=== PATIENT | male | born 1970 | race African-American/Black ===

== ENCOUNTER 2016-07-02 04:26 | Emergency (ER) | payer MEDICAID ==
[2016-01-24 05:38] VITALS: BMI 22.3
[~2016-07-02 04:26] MED LIST: HYDROCODON-ACE1 EAC7 PO; LISINOPRIL2.5 MG PO; NORVASC2.5 MG PO; PROTONIX40 MG PO
[2016-07-02 05:23] LABS: CALC OSMOLALITY 287 mosm/kg (275-300); CALCIUM 8.3 mg/dL (8.5-10.1); CARBON DIOXIDE 24.1 mmol/L (21.0-32.0); CHLORIDE - SERUM 108 mmol/L (98-107); CREATININE - SERUM 0.7 mg/dL (0.6-1.3); GLUCOSE 98 mg/dL (74-106); POTASSIUM - SERUM 3.4 mmol/L (3.5-5.1); SODIUM 145 mmol/L (136-145); UREA NITROGEN 9 mg/dL (7-18); eGFR NON AFRICAN AMERICAN > 90 mL/min (90-120)
[2016-07-02 06:06] LABS: BASOPHILS 0.8 % (0.0-2.0); EOSINOPHILS 1.9 % (0-7); HEMATOCRIT 36.8 % (42.0-54.0); IMMATURE GRANULOCYTES 0.2 % (0-5); LYMPHOCYTES 49.3 % (15-50); MCH 32.2 pg (26.0-34.0); MCHC 32.6 g/dL (31.0-37.0); MCV 98.7 fL (80.0-100.0); MEAN PLATELET VOLUME 10.4 fL (7.4-10.4); MONOCYTES 8.9 % (2-11); NEUTROPHILS 38.9 % (40-80); PLATELET COUNT 103 10x3/uL (130-400); RBC 3.73 10x6/uL (4.20-6.10); RDW 19.7 % (11.5-14.5); WBC 4.8 10x3/uL (4.8-10.8)
== END 2016-07-02 14:12 | disposition home or self-care (01) ==
LOC: D.ER 04:26
PROVIDERS: Emergency Medicine
DX: S00.93XA Contusion of unspecified part of head, initial encounter (principal); W01.0XXA Fall on same level from slipping, tripping and stumbling without subsequent striking against object, initial encounter; Y93.89 Activity, other specified; Y92.410 Unspecified street and highway as the place of occurrence of the external cause; F10.129 Alcohol abuse with intoxication, unspecified; Z86.73 Personal history of transient ischemic attack (TIA), and cerebral infarction without residual deficits; I10 Essential (primary) hypertension; F17.200 Nicotine dependence, unspecified, uncomplicated

== ENCOUNTER 2016-07-15 08:20 | Emergency (ER) | payer MEDICAID ==
[2016-01-24 05:38] VITALS: BMI 22.3
[2016-07-15 09:01] LABS: BASOPHILS 0.1 % (0.0-2.0); EOSINOPHILS 0 % (0-7); HEMATOCRIT 41.9 % (42.0-54.0); HEMOGLOBIN 14.3 g/dL (13.5-17.5); IMMATURE GRANULOCYTES 2.4 % (0-5); MCH 33.3 pg (26.0-34.0); MCHC 34.1 g/dL (31.0-37.0); MCV 97.7 fL (80.0-100.0); MEAN PLATELET VOLUME 11.5 fL (7.4-10.4); MONOCYTES 3.4 % (2-11); NEUTROPHILS 86.1 % (40-80); RBC 4.29 10x6/uL (4.20-6.10); RDW 16.2 % (11.5-14.5); WBC 19.4 10x3/uL (4.8-10.8)
[2016-07-15 09:07] LABS: PLATELET COUNT 63 10x3/uL (130-400)
[2016-07-15 09:11] LABS: ALBUMIN 3.3 g/dL (3.4-5.0); ALKALINE PHOSPHATASE 93 U/L (46-116); ALT (SGPT) 63 U/L (10-68); AMYLASE - SERUM 39 U/L (25-115); CALCIUM 8.1 mg/dL (8.5-10.1); CARBON DIOXIDE 25.3 mmol/L (21.0-32.0); CHLORIDE - SERUM 93 mmol/L (98-107); CREATININE - SERUM 0.9 mg/dL (0.6-1.3); LIPASE 73 U/L (73-393); PROTEIN - SERUM 8.6 g/dL (6.4-8.2); SODIUM 133 mmol/L (136-145); UREA NITROGEN 8 mg/dL (7-18); eGFR NON AFRICAN AMERICAN > 90 mL/min (90-120)
[2016-07-15 09:13] LABS: CALC OSMOLALITY 266 mosm/kg (275-300); GLUCOSE 147 mg/dL (74-106)
[2016-07-15 09:15] LABS: POTASSIUM - SERUM 2.8 mmol/L (3.5-5.1)
[2016-07-15 10:17] LABS: PLATELET ESTIMATE DECREASED
[2016-07-15 10:18] LABS: PLATELET MORPHOLOGY GIANT PLTS PRESENT
== END 2016-07-15 14:50 | disposition home or self-care (01) ==
LOC: D.ER 08:20
PROVIDERS: Emergency Medicine
DX: R11.10 Vomiting, unspecified (principal); R19.7 Diarrhea, unspecified; E86.0 Dehydration; E83.42 Hypomagnesemia; E87.6 Hypokalemia; R73.9 Hyperglycemia, unspecified; I10 Essential (primary) hypertension; F17.200 Nicotine dependence, unspecified, uncomplicated

== ENCOUNTER 2016-08-26 16:32 | Emergency (ER) | payer MEDICAID ==
[2016-01-24 05:38] VITALS: BMI 22.3
== END 2016-08-26 19:10 | disposition left against medical advice (07) ==
LOC: D.ER 16:32
DX: R07.9 Chest pain, unspecified (principal); R00.0 Tachycardia, unspecified

== ENCOUNTER 2016-08-29 12:50 | Emergency (ER) | payer MEDICAID ==
[2016-01-24 05:38] VITALS: BMI 22.3
== END 2016-08-29 13:50 | disposition home or self-care (01) ==
LOC: D.ER 12:50
DX: R06.6 Hiccough (principal); I10 Essential (primary) hypertension; E87.6 Hypokalemia

== ENCOUNTER 2016-08-30 13:54 | Emergency (ER) | payer MEDICAID ==
[2016-01-24 05:38] VITALS: BMI 22.3
== END 2016-08-30 19:40 | disposition home or self-care (01) ==
LOC: D.ER 13:54
DX: R06.6 Hiccough (principal); F17.200 Nicotine dependence, unspecified, uncomplicated; I10 Essential (primary) hypertension; E87.6 Hypokalemia

== ENCOUNTER 2016-09-17 08:57 | Emergency (ER) | payer MEDICAID ==
[2016-01-24 05:38] VITALS: BMI 22.3
== END 2016-09-17 09:50 | disposition home or self-care (01) ==
LOC: D.ER 08:57
DX: S93.402A Sprain of unspecified ligament of left ankle, initial encounter (principal); X58.XXXA Exposure to other specified factors, initial encounter; Y93.89 Activity, other specified; Y92.410 Unspecified street and highway as the place of occurrence of the external cause; I10 Essential (primary) hypertension; E87.6 Hypokalemia

== ENCOUNTER 2016-09-30 00:35 | Emergency (ER) | payer MEDICAID ==
[2016-01-24 05:38] VITALS: BMI 22.3
== END 2016-09-30 04:11 | disposition home or self-care (01) ==
LOC: D.ER 00:35
DX: T50.905A Adverse effect of unspecified drugs, medicaments and biological substances, initial encounter (principal); Z72.89 Other problems related to lifestyle; M25.572 Pain in left ankle and joints of left foot; I10 Essential (primary) hypertension; E87.6 Hypokalemia; F17.200 Nicotine dependence, unspecified, uncomplicated

== ENCOUNTER 2016-10-09 22:41 | Emergency (ER) | payer MEDICAID ==
[2016-01-24 05:38] VITALS: BMI 22.3
== END 2016-10-09 23:35 | disposition home or self-care (01) ==
LOC: D.ER 22:41
DX: R52 Pain, unspecified (principal); T14.8 Other injury of unspecified body region; X58.XXXA Exposure to other specified factors, initial encounter; Y93.89 Activity, other specified; Y92.89 Other specified places as the place of occurrence of the external cause; M19.90 Unspecified osteoarthritis, unspecified site; I10 Essential (primary) hypertension; F17.200 Nicotine dependence, unspecified, uncomplicated; E87.6 Hypokalemia